=== PATIENT | male | born 2000 | race Two or more races ===

== ENCOUNTER 2024-06-04 13:40 | Emergency (ER) | payer MEDICAID, SELFPAY ==
--- NOTE | ~2024-06-04 | XR_ITS ---
EXAMINATION: XR SHOULDER, RIGHT CLINICAL INFORMATION: Right shoulder pain COMPARISON: None available. TECHNIQUE: AP external rotation, Grashey, scapular Y views of the right shoulder. FINDINGS: BONES: Bony structures are intact. There is no focal bone destruction or periosteal reaction seen. JOINTS: Alignment of joints is normal. SOFT TISSUE: Soft tissue is normal. No radiopaque foreign body or abnormal air collection is seen. XR/XR shoulder RT min 2V IMPRESSION: 1. Normal x-rays of right shoulder. No fracture or dislocation or signs of osteomyelitis are found. Electronically signed by: Marimar Marie MD 06/04/2024 04:15 PM EDT
--- NOTE | 2024-06-04 14:17 | ED.UPPEXIN ---
HPI - Extremity Injury (Upper) General Chief Complaint: Extremity Injury, Upper Stated Complaint: shoulder inj Time Seen by Provider: 06/04/24 16:20 Source: patient Mode of arrival: ambulatory Limitations: no limitations History of Present Illness HPI narrative: Patient is a 23-year-old male who presents emergency department for evaluation. He reports yesterday he was throwing a ball when he felt like his right shoulder had dislocated. He was unable to move the arm. He had a bystander help him to move his arm to ?pop it back?. He states he was dislocated this shoulder in the past approximately 5 years ago in the [place]. He went to a hospital that was put back into place by his account. He denies any numbness tingling or cold sensation to the hand. He has full range of motion to the wrist and elbow. Related Data Allergies Allergy/AdvReac Type Severity Reaction Status Date / Time No Known Allergies Allergy Verified 06/04/24 14:19 Review of Systems Review of Systems: Yes all other systems are reviewed and are negative PMFSH Past Medical History Attestation statement: The following information was validated with the patient. Source: old records reviewed Social History Social History Advance Directives: No Advance Directives Information Provided: No Do you have a plan to hurt others: No Plan Physical Exam Vital Signs: Vital Signs: Last Vital Signs Temp 98.5 F 06/04/24 14:18 Pulse 58 06/04/24 14:18 Resp 18 06/04/24 14:18 BP 119/64 06/04/24 14:18 Pulse Ox 98 06/04/24 14:18 O2 Del Method Room Air 06/04/24 14:18 BMI result Body Mass Index 24.7 Appearance: Alert.?Oriented to person, place and time. No acute distress.?Normal affect. Neck: Normal inspection.? Neck supple.?? CVS: Heart sounds normal. Normal heart rate and rhythm.? Pulses normal.?? Respiratory: No respiratory distress.? Lung sounds clear to auscultation bilaterally?? Skin: Skin warm and dry.? Normal skin color.? Extremities: Decreased AROM to left shoulder, pain with abduction, overhead extension and external rotation. 2+ radial pulse bilaterally. No palpable deformities. No tenderness upon palpation of the biceps tendon insertion site Neuro: Moves all extremities spontaneously. Sensation intact bilaterally. Ambulates with normal steady gait. Course Course Course Narrative: This is a Rapid Medical Exam performed in triage by Neeru Guerin PA-C. Full HPI, ROS and PE to be performed by primary ED provider. 23 yo M w/no sig PMHx presenting to the ED c/o right shoulder pain s/p throwing a ball at the [place] yesterday. Feels like shoulder dislocated. Admits he dislocated his shoulder 5yrs ago in [place] PE: R shoulder guarding, limited ROM 2/2 pain Plan: XR Medical Decision Making Medical Decision Making MDM Narrative: Patient is a 23 urgency department for evaluation of right shoulder pain as per HPI. Subjectively felt as though he dislocated the shoulder and was able to manually reduce with the help of a bystander. At the time of evaluation does not appear to have acute dislocation. Extremity is neurovascularly intact distally. XR was obtained in his without evidence of fracture dislocation at this time. Given the possibility of recent dislocation and his physical exam, he has been placed in a sling instructed to use over the next few days with conservative treatment in the use of acetaminophen/ibuprofen. Advised outpatient follow-up as needed. Discontinuation of sling after 3 days with gentle stretching and [id number] exercises. Stable for discharge Differential Diagnosis Differential Diagnoses: The differential diagnosis associated with the presentation includes (See narrative above) Independent Interpretation I performed an independent interpretation of an: Plain X-Ray (See narrative above) Radiology Impression Discussion of test interpretation with radiology: I have reviewed the radiologist's reading. Radiologist Impression: XR/XR shoulder RT min 2V IMPRESSION: 1. Normal x-rays of right shoulder. No fracture or dislocation or signs of osteomyelitis are found. External Record Review External record reviewed: Outpatient record Prescription Management I considered prescription management with: Pain Medication (Acetaminophen/ibuprofen) Discharge Plan Discharge Clinical Impression: Right shoulder strain Patient Disposition: Home, Self-Care Instructions: How to Use a Sling (ED), R.I.C.E. Treatment (ED), Rotator Cuff Injury Exercises (DC) Additional Instructions: You can take ibuprofen 200 mg, 3 tablets (600mg) every 6-8 hours as needed for pain, in addition to Tylenol 500 mg, 2 tablets (1,000mg) every 4-6 hours as needed for pain, but not to exceed 3 doses daily (3,000mg).? As discussed, x-ray today does not show evidence of any fracture the shoulder being out of place which is reassuring. You may use the sling for a few days to help provide rest from the shoulder, after that please discontinue use and perform gentle stretching exercises of the shoulder. Follow-up with primary care doctor. Referrals: Physician,Unknown J [Primary Care Provider] - Stand Alone Forms: Work/School Release Print Language: Swedish
[2024-06-04 14:18] VITALS: BP 119/64; PULSE 58; RESP 18; TEMP 36.9; O2SAT 98; BMI 24.7
[2024-06-04 17:57] VITALS: BP 119/64; PULSE 58; RESP 18; TEMP 36.9; O2SAT 98
== END 2024-06-04 17:58 | disposition home or self-care (01) ==
PROVIDERS: Emergency Provider Internal Medicine
DX: S46.911A Strain of unspecified muscle, fascia and tendon at shoulder and upper arm level, right arm, initial encounter (principal); X50.9XXA Other and unspecified overexertion or strenuous movements or postures, initial encounter; Y93.79 Activity, other specified sports and athletics; Y92.838 Other recreation area as the place of occurrence of the external cause; Y99.9 Unspecified external cause status
CPT/HCPCS: 73030; 99282; 99283